=== PATIENT | female | born 1985 | race Hispanic/Latino ===

== ENCOUNTER 2019-06-29 10:38 | Emergency (ER) | payer OTHER, SELFPAY ==
[2019-06-29 10:46] VITALS: BP 121/73; PULSE 94; RESP 16; TEMP 36.8; O2SAT 100
--- NOTE | 2019-06-29 10:49 | PC.NURSE ---
in br to obtain ua spec.
--- NOTE | 2019-06-29 11:06 | ED.FEMALEGU ---
HPI - Female Genitourinary General Chief complaint: SHERIFF DEPUTY Stated complaint: Yeast Infection Time Seen by Provider: 06/29/19 11:06 Source: patient Mode of arrival: ambulatory Limitations: no limitations History of Present Illness HPI Narrative: Emily Meredith is a 33 yo female with no PMH who comes here with vaginal discharge that she states is due to taking a couple doses of antibiotics that or someone else's; she is red sore and swollen in the genital area Related Data Home Medications Medication Instructions Recorded Confirmed Zyrtec-D 06/29/19 albuterol sulfate INHALATION 06/29/19 budesonide-formoterol [Symbicort] INHALATION 06/29/19 fluticasone propionate INTRANASAL 06/29/19 Allergies Allergy/AdvReac Type Severity Reaction Status Date / Time No Known Allergies Allergy Verified 08/21/17 19:26 Review of Systems Review of Systems: Narrative: CONSTITUTIONAL: Denies fever, chills, sweats. EYES: Denies visual changes, redness, discharge. ENT: Denies rhinorrhea, congestion, sore throat, otalgia. CARDIOVASCULAR: Denies chest pain, palpitations, edema. RESPIRATORY: Denies dyspnea, wheezing, cough GASTROINTESTINAL: Denies abdominal pain, nausea, vomiting, diarrhea. GENITOURINARY: Denies dysuria, hematuria, has abnormal discharge, with swelling and redness SKIN: Denies rash or itching. NEUROLOGIC: Denies numbness, or focal weakness. PSYCHIATRIC: Denies anxiety or depression. [facility] Family History Family History Other No active medical problems Social History Social History (Updated 06/29/19 @ 11:22 by Marj Crenshaw CNP) Smoking status: Never smoker Alcohol intake: never Living arrangements: with family Comments My nurse Exam Narrative: Exam Narrative: GENERAL: This is a well-nourished, well-developed patient, in mild distress. HEAD: normocephalic, atraumatic. EYES: PERRL. Sclera clear/white. Vision is grossly intact. EARS: External ears normal, . Hearing grossly intact. NOSE: External nose normal with no obvious nasal discharge, nares without redness, no rhinorrhea. THROAT: Mucous membranes moist, posterior pharynx clear. NECK: Neck supple, non-tender without lymphadenopathy, CARDIOVASCULAR: Regular rate and rhythm without murmurs, gallops, or rubs. RESPIRATORY: Clear to auscultation. Breath sounds equal bilaterally. No wheezes, rales, or rhonchi. GASTROINTESTINAL: Abdomen soft, non-tender, SKIN: warm, intact with no suspicious lesions or rash, good texture and turgor. NEURO: awake, alert, and oriented to person, place and time. There were no obvious focal neurologic abnormalities. Steady gait EXTREMITIES: Normal range of motion. No edema. BACK: Nontender without deformity or crepitance. No flank tenderness. : vaginal vault reddened and swollen, traces of monisat in vault, no CMT, adnexal tenderness Course Course Emergency Course: Pelvic exam specimens for GC chlamydia, UA sent Given Rocephin and Zithromax here, 2 doses of Diflucan ordered Vital Signs Vital signs: Vital Signs Temperature 98.3 F 06/29/19 10:46 Pulse Rate 94 06/29/19 10:46 Respiratory Rate 16 06/29/19 10:46 Blood Pressure 121/73 06/29/19 10:46 Pulse Oximetry 100 06/29/19 10:46 Temperature 98.3 F 06/29/19 10:46 Pulse Rate 94 06/29/19 10:46 Respiratory Rate 16 06/29/19 10:46 Blood Pressure 121/73 06/29/19 10:46 Pulse Oximetry 100 06/29/19 10:46 MDM - Female Genitourinary Differential Diagnosis Differential diagnosis: Likely urinary tract infection, bacterial vaginosis and other Lab Data Labs: Urine Glucose Negative Reference Range: Negative Urine Bilirubin Negative Reference Range: Negative Urine Ketone Negative Reference Range: Negative Urine Specific [place] 1.020 Reference Range:1.001-1.035 Urine Blood
--- NOTE | 2019-06-29 11:40 | PC.NURSE ---
unable to pull medication from med. pyxis, food inspector aware and will reorder.
[2019-06-29] MEDS: AZITHROMYCIN 250 MG TABLET 1000 MG PO (12:00)
[2019-06-29] MEDS: cefTRIAXone 250 MG VIAL IM (12:01)
== END 2019-06-29 12:20 | disposition home or self-care (01) ==
PROVIDERS: Emergency Provider Nurse Practitioner
DX: N76.0 Acute vaginitis (principal); Z04.89 Encounter for examination and observation for other specified reasons; J45.909 Unspecified asthma, uncomplicated
CPT/HCPCS: 81003; 87077; 87086; 87088; 87491; 87591; 87661; 96372; 99213; A9270; G0463; J0696

== ENCOUNTER 2021-03-22 16:07 | Emergency (ER) | payer OTHER, SELFPAY ==
--- NOTE | ~2021-03-22 | XR_ITS ---
EXAMINATION: XR ankle RT min 3V DATE: 03/22/2021 17:07 INDICATION: Right ankle pain post fall. TECHNIQUE: Anteroposterior, oblique, mortise, and lateral views of the right ankle were obtained. COMPARISON: None. FINDINGS: Alignment is normal. No fracture. Joint spaces are well maintained. Small plantar calcaneal spur. S oft tissues tissue swelling about the ankle both medially and more prominently laterally. No definiti ve right ankle joint effusion. IMPRESSION: 1. No acute osseous abnormality. Reviewed, dictated and finalized at location A. [employer] CLEANING SPECIALIST
[2021-03-22 16:45] VITALS: BP 111/80; PULSE 104; RESP 16; TEMP 36.2; O2SAT 99
[2021-03-22 19:15] VITALS: BP 119/80; PULSE 90; RESP 16; TEMP 37.5; O2SAT 98
--- NOTE | 2021-03-22 21:26 | ED.GENADULT ---
HPI - General Adult General Chief complaint: Extremity Injury, Lower Stated complaint: right ankle injury Time Seen by Provider: 03/22/21 21:02 Source: patient and RN notes reviewed History of Present Illness HPI narrative: Patient is a 35 y/o female complaining of right ankle pain after she fell about 2 weeks ago. She describe her pain as aching and rates it as 7/10. She states that walking worsens her pain. However, she is able to walk. She denies any other injury due to the fall. Related Data Home Medications Medication Instructions Recorded Confirmed Zyrtec-D 06/29/19 albuterol sulfate INHALATION 06/29/19 budesonide-formoterol [Symbicort] INHALATION 06/29/19 fluticasone propionate INTRANASAL 06/29/19 Allergies Allergy/AdvReac Type Severity Reaction Status Date / Time No Known Allergies Allergy Verified 08/21/17 19:26 Review of Systems Review of Systems: All systems reviewed & are unremarkable except as noted in HPI and below Musculoskeletal: Musculoskeletal: Reports as per HPI and Reports arthralgias (right ankle pain) [facility] Family History Family History Other No active medical problems Social History Social History Smoking status: Never smoker Alcohol intake: never Exam Const: General: no acute distress and well developed Eyes: General: appearance normal, both eyes and all related structures Conjunctivae: conjunctivae normal Neck: Neck: normal visual inspection and full ROM Extrem: General: full ROM and no pedal edema Right lower extremity: ankle Details: tenderness Location: of the lateral malleolus Course Vital Signs Vital signs: Vital Signs Temperature 36.2 C L 03/22/21 16:45 Pulse Rate 104 H 03/22/21 16:45 Respiratory Rate 16 03/22/21 16:45 Blood Pressure 111/80 03/22/21 16:45 Pulse Oximetry 99 03/22/21 16:45 Temperature 37.5 C 03/22/21 19:15 Pulse Rate 87 03/22/21 21:45 Respiratory Rate 16 03/22/21 19:15 Blood Pressure 116/83 03/22/21 21:45 Pulse Oximetry 97 03/22/21 21:45 Medical Decision Making Vital Signs Vital Signs: Vital Signs Temperature 36.2 C L 03/22/21 16:45 Pulse Rate 104 H 03/22/21 16:45 Respiratory Rate 16 03/22/21 16:45 Blood Pressure 111/80 03/22/21 16:45 Pulse Oximetry 99 03/22/21 16:45 Temperature 37.5 C 03/22/21 19:15 Pulse Rate 87 03/22/21 21:45 Respiratory Rate 16 03/22/21 19:15 Blood Pressure 116/83 03/22/21 21:45 Pulse Oximetry 97 03/22/21 21:45 Discharge Plan Discharge Clinical Impression: Right ankle sprain Qualifiers: Encounter type: initial encounter Involved ligament of ankle: unspecified ligament Qualified Code(s): S93.401A - Sprain of unspecified ligament of right ankle, initial encounter Patient Disposition: Home, Self-Care Condition: Stable Instructions: Ankle Sprain (ED) Prescriptions: No Action albuterol sulfate 90 mcg/actuation HFA aerosol inhaler INHALATION RF: 0 fluticasone propionate 50 mcg/actuation spray,suspension INTRANASAL RF: 0 budesonide-formoterol [Symbicort] 160-4.5 mcg/actuation HFA aerosol inhaler INHALATION RF: 0 Zyrtec-D RF: 0 fluconazole 150 mg tablet 150 mg PO ONCE Qty: 2 RF: 0 Follow-up/Referrals: PHYSICIAN NOT ON STAFF,NONSTAFF [Primary Care Provider] -
[2021-03-22 21:45] VITALS: BP 116/83; PULSE 87; O2SAT 97
== END 2021-03-22 22:05 | disposition home or self-care (01) ==
PROVIDERS: Emergency Provider Emergency Medicine
DX: S93.401A Sprain of unspecified ligament of right ankle, initial encounter (principal); W19.XXXA Unspecified fall, initial encounter
CPT/HCPCS: 73610; 99283

== ENCOUNTER 2021-04-05 13:02 | Emergency (ER) | payer OTHER, SELFPAY ==
[2021-04-05 13:11] VITALS: BP 104/68; PULSE 96; RESP 16; TEMP 36.4; O2SAT 100
== END 2021-04-05 14:40 | disposition left against medical advice (07) ==
LOC: EXPCOLL 13:05
PROVIDERS: Emergency Provider Nurse Practitioner
DX: Z53.21 Procedure and treatment not carried out due to patient leaving prior to being seen by health care provider (principal)
CPT/HCPCS: 99199

== ENCOUNTER 2021-04-05 15:17 | Emergency (ER) | payer OTHER, SELFPAY ==
[2021-04-05 15:24] VITALS: BP 101/75; PULSE 91; RESP 18; TEMP 36.6; O2SAT 100
--- NOTE | 2021-04-05 17:31 | ED.URI ---
HPI - URI/Sore Throat General Chief Complaint: Upper Respiratory Infection Stated Complaint: Sore throat,Cough Time Seen by Provider: 04/05/21 17:22 Source: patient and RN notes reviewed Mode of arrival: ambulatory Limitations: no limitations History of Present Illness HPI Narrative: Patient presents today with a 3-day history of sore throat, cough, headache, left ear clogging. Denies fever or shortness of breath. She took NyQuil last night with some mild relief. She did a rapid COVID-19 test today that was negative MD elicited complaint: cough and sore throat Related Data Allergies Allergy/AdvReac Type Severity Reaction Status Date / Time No Known Allergies Allergy Verified 04/05/21 14:22 Review of Systems Review of Systems: CONSTITUTIONAL: Denies body aches, fever, chills, or sweats. EYES: Denies visual changes, redness, or discharge. ENT: Denies rhinorrhea, congestion. + Sore throat, left ear clogging CARDIOVASCULAR: Denies chest pain, palpitations, or edema. RESPIRATORY: Denies dyspnea.+ GASTROINTESTINAL: Denies abdominal pain, nausea, vomiting, or diarrhea. GENITOURINARY: Denies dysuria or hematuria. SKIN: Denies rash, itching, or wounds. MUSCULOSKELETAL: Denies back pain, joint pain, or myalgia. NEUROLOGIC: Denies numbness, tingling, or weakness.+ Headache PSYCH: Denies depression or anxiety. [facility] Family History Family History Other No active medical problems Social History Social History Smoking status: Never smoker Alcohol intake: never Comments At time of signature, I have reviewed and agree with nursing past medical, surgical, social and family history unless otherwise noted. Please see nursing chart for further information. There is no relevant family history pertinent to the presenting complaint Exam Narrative: GENERAL: Well-appearing, well-nourished, and in no acute distress. HEAD: Normocephalic, atraumatic. EYES: EOMI. No redness or drainage. Conjunctivae normal. ENT: Mucous membranes pink and moist. Nares clear. No rhinorrhea. TMs normal bilaterally. Throat mildly erythematous. Tonsils absent. Uvula midline. NECK: Normal AROM. Supple. No lymphadenopathy. CHEST: No respiratory distress. Clear to auscultation. HEART: Regular rate and rhythm. No murmur appreciated. Normal peripheral pulses. EXTREMITIES: Normal range of motion. No edema. SKIN: Warm, dry, no rash. Capillary refill normal. Normal skin turgor. NEURO: No focal deficits. Alert and oriented x3. Gait steady. PSYCH: Normal affect. No signs of depression or anxiety. Course Vital Signs Vital signs: Vital Signs Temperature 97.8 F 04/05/21 15:24 Pulse Rate 91 04/05/21 15:24 Respiratory Rate 18 04/05/21 15:24 Blood Pressure 101/75 04/05/21 15:24 Pulse Oximetry 100 04/05/21 15:24 Temperature 97.8 F 04/05/21 15:24 Pulse Rate 91 04/05/21 15:24 Respiratory Rate 18 04/05/21 15:24 Blood Pressure 101/75 04/05/21 15:24 Pulse Oximetry 100 04/05/21 15:24 Reviewed MDM - URI/Sore Throat Differential Diagnosis Differential diagnosis: Likely upper respiratory infection, otitis media, viral infection, pharyngitis and other (Strep throat) Lab Data Attestation: I reviewed the patient's lab results. Labs: Strep Screen Presumptive Negative *(Reference Range: Negative)* Critical Care Time Critical Care Time Critical Care Time: No Discharge Plan Discharge Clinical Impression: Upper respiratory infection Qualifiers: URI type: unspecified URI Qualified Code(s): J06.9 - Acute upper respiratory infection, unspecified Patient Disposition: Home, Self-Care Condition: Stable Instructions: Upper Respiratory Infection (DC) Additional Instructions: Your rapid strep swab was negative today at [facility]. You will
== END 2021-04-05 18:05 | disposition home or self-care (01) ==
PROVIDERS: Emergency Provider Nurse Practitioner
DX: J06.9 Acute upper respiratory infection, unspecified (principal); J45.909 Unspecified asthma, uncomplicated
CPT/HCPCS: 87081; 87880; 99213; G0463

== ENCOUNTER 2022-07-14 18:55 | Emergency (ER) | payer OTHER, SELFPAY ==
--- NOTE | 2022-07-14 18:56 | ED.SKABFB ---
HPI - Skin/Abscess/Foreign Bdy General Chief complaint: Skin/Abscess/Foreign Body Stated complaint: Rash On Body Time Seen by Provider: 07/14/22 18:56 Source: patient Mode of arrival: ambulatory Limitations: no limitations History of Present Illness HPI narrative: Emily is a 36-year-old female patient presenting to the clinic today with complaints of a rash all over her body. She reports she has had this rash for approximately 3 weeks. States she changed her laundry detergent and developed a rash however she has switch back but is still having the rash. Related Data Allergies Allergy/AdvReac Type Severity Reaction Status Date / Time No Known Allergies Allergy Verified 04/05/21 14:22 Review of Systems Review of Systems: Pertinent positives per HPI. Patient denies any fever, chills, headache, visual changes, dizziness, cough, runny nose, sore throat, shortness of breath, chest pain, palpitations, nausea, vomiting, diarrhea, constipation, abdominal pain, or any urinary issues. [facility] Family History Family History Other No active medical problems Social History Social History Smoking status: Never smoker Alcohol intake: never Living arrangements: with family Comments At the time of my signature, I reviewed and agree with the nursing past medical, surgical, social, and family history. There is no relevant family history pertinent to the patient complaint. Exam Narrative: General: Well-developed, well nourished, in no apparent distress Head: Normocephalic, atraumatic. Cardio: Regular rate and rhythm, s1 and s2 normal, no murmur appreciated. Resp: Clear to auscultation bilaterally, no rhonchi, rales, wheezing or rubs. Integumentary: [place], warm, and dry, intact without lesion, scattered red prickly itchy rash to the bilateral arm, chest wall, legs, and neck. Course Course Emergency Course: Portions of this record may have been created with voice recognition software. Level of Care: Express Care Visit Vital Signs Vital signs: Vital Signs Temperature 36.6 C 07/14/22 19:03 Pulse Rate 99 07/14/22 19:03 Respiratory Rate 12 07/14/22 19:03 Blood Pressure 138/86 07/14/22 19:03 Pulse Oximetry 100 07/14/22 19:03 Oxygen Delivery Room Air 07/14/22 19:03 Temperature 36.6 C 07/14/22 19:03 Pulse Rate 99 07/14/22 19:03 Respiratory Rate 12 07/14/22 19:03 Blood Pressure 138/86 07/14/22 19:03 Pulse Oximetry 100 07/14/22 19:03 Oxygen Delivery Room Air 07/14/22 19:03 Vital signs reviewed MDM - Skin/Abscess/Foreign Bdy MDM Narrative Medical decision making narrative: At the time of visit patient is resting comfortably on the exam table. I suspect patient has dermatitis. Will send in prescription for prednisone and topical triamcinolone cream. Supportive measures were discussed with the patient she voiced understanding discharge instructions and agrees to treatment plan. Differential Diagnosis Differential diagnosis: Likely viral exanthem, urticaria, eczema and contact dermatitis Discharge Plan Discharge Clinical Impression: Dermatitis Patient Disposition: Home, Self-Care Condition: Stable Instructions: Antibiotic Form, Dermatitis (ED) Additional Instructions: Apply triamcinolone cream as directed Take prednisone as directed Avoid hot showers Avoid scratching and this causes rash to spread Moist dry skin twice daily with non scented lotions such as Lubriderm, Aquaphor, or Cetaphil May take benadryl 25-50mg every 6 hours as needed for itching. Follow up with your PCP in 3-5 days if symptoms persist or sooner if they worsen Go to the Emergency Room if symptoms worsen- fever, rash spreading with treatment, shortness of breath, tongue swelling, drooling, or chest pain Prescriptions: New triamcinolone acetonide 0.1 % cream
[2022-07-14 19:03] VITALS: BP 138/86; PULSE 99; RESP 12; TEMP 36.6; O2SAT 100
== END 2022-07-14 19:11 | disposition home or self-care (01) ==
PROVIDERS: Emergency Provider Nurse Practitioner Family
DX: L30.9 Dermatitis, unspecified (principal); J45.909 Unspecified asthma, uncomplicated
CPT/HCPCS: 99213; G0463

== ENCOUNTER 2023-01-10 15:11 | Outpatient (CLI) | payer OTHER, SELFPAY ==
--- NOTE | 2023-01-10 15:27 | ECG_ITS ---
Measurements Intervals [place] Rate: 76 P: 60 NM: 135 QRS: 63 QRSD: 85 T: 37 QT: 370 QTc: 418 Interpretive Statements SINUS RHYTHM WITH SINUS ARRHYTHMIA BASELINE ARTIFACT- II, III, AVR, AVL, AVF, V5 NORMAL ECG NO PREVIOUS ECG AVAILABLE FOR COMPARISON Electronically Signed On 01-10-2023 15:57:39 CDT by Andrew Burnett D.O.
[2023-01-10 15:47] LABS: Hematocrit 42.7 % (37.0-47.0)
== END 2023-01-10 15:12 | disposition home or self-care (01) ==
PROVIDERS: Anesthesiology; Visit Provider Surgery Plastic and Reconstructive Surgery
DX: Z41.1 Encounter for cosmetic surgery (principal)
CPT/HCPCS: 36415; 85014; 85018; 93005

== ENCOUNTER 2023-01-13 03:35 | Day surgery (SDC) | payer OTHER, SELFPAY ==
[2023-01-03 15:25] VITALS: BMI 28.8
--- NOTE | 2023-01-03 15:32 | PC.NURSE ---
Report to the Outpatient Waiting Room, entrance under the green pavilion located off [facility], at time _0900_ on date _[id number]_. Planned Procedure Time: _1100_. Time changes happen often and if your time is changed the preop area will call you the afternoon before. - You and your visitor will be asked to self-screen and do not enter if you have any COVID symptoms. - A mask is optional within the hospital at this time. Patients may have clear liquids (water, carbonated beverages, clear teas, apple juice) until 3 hours prior to surgery with a maximum of 20 ounces. - No food from midnight until time of surgery Take the following medications with a SIP of water the morning of surgery: None DO NOT STOP ANY OF YOUR OTHER PRESCRIPTION MEDICATIONS PRIOR TO SURGERY ?EXCEPT THE FOLLOWING Medications to discontinue per physician __Multivitamin Date to take last uqru___[id number] Please no make-up, nail y[place], hairspray, perfume, deodorant, or body powder the day of surgery. No jewelry (including any body piercings) or valuables the day of surgery, leave them at home. Please take a shower or bath the night before, or the morning of, surgery with an antibacterial soap. Wear comfortable, loose fitting clothing. - Jewelry must be removed prior to entering the operating room. Rings and piercings that are not removed may be cut off. - The hospital will not accept responsibility for valuables. - Please leave all valuables, including medications, at home the day of surgery. If you are going home after surgery, a licensed [place] driver must drive you home. - NO public transportation without another adult if you receive anesthesia. - We recommend that an adult stay with you for 24 hours following discharge. - We also recommend that you do not drive, make important decision, drink alcoholic beverages, or take any drugs that were not prescribed by your health care provider for at least 24 hours after your discharge time. Follow any additional instructions given to you from your surgeon. If you or anyone in your household have experienced Covid symptoms in the past week, please notify your surgeon or the nurse liaison at the phone number below for possible testing. Telephone instructions given to __Patient__and asked if any additional questions and then verbalized understanding. Patient advised to call surgeon office or pre surgery nurse liaison [phone] if any additional questions.
[2023-01-13] VITALS (9 sets, daily range): BP systolic 90–112; BP diastolic 58–75; PULSE 85–112; RESP 13–20; TEMP 36.2–37.1; O2SAT 95–100
--- NOTE | 2023-01-13 07:49 | W.PM.PROC2 ---
Procedure Note - Detailed Date of Procedure 01/13/23 Pre-op Diagnosis skin laxity Post-op Diagnosis Same Procedure Performed [id number] abdominoplasty with suction lipectomy Surgeon Alcon Del Toro MD Anesthesia General Findings Lipoaspirate: 750 cc Tissue removed: 2,061 grams Description of Procedure They are here today for the above procedures. Previously and again today the risks, benefits, alternatives were discussed in extensive detail. I wanted them to be very realistic about the risks involved as well as expectations. We discussed aftercare and what to monitor for. I was very upfront about the risks of wound breakdown leading to loss of skin, open wounds, and need for additional procedures with permanent abdominal deformity. We discussed DVT/PE risks and management. Made sure answered all of their questions to their satisfaction today and consent was obtained. They were marked in the preoperative holding area with their verification. The patient was taken to the operating room. Anesthesia was provided by anesthesiology. A Aranda catheter was started. Placed prone on the operating room table with care taken to protect from injury. Prepped and draped in a standard sterile fashion. A surgical time-out was taken. Stab incisions were made and tumescent solution was infiltrated. Once adequate time was allowed for hemostasis a 5mm basket and 3mm multi hole cannula were utilized to complete suction lipectomy based on S.A.F.E. technique in multiple planes and passes. Suction lipectomy continued to result based on pre-operative planning, intra-operative observation, and rolling pinch test which were in full agreement. Patient was then placed supine with care taken to protect from injury. I placed the patient in a flexed position to verify the upper and lower markings would reach. I then placed supine. A thorough abdominal examination was completed. Stab incisions were made and tumescent solution was infiltrated. Once adequate time was allowed for hemostasis a 5mm basket and 3mm multi hole cannula were utilized to complete suction lipectomy based on S.A.F.E. technique in multiple planes and passes. Suction lipectomy continued to result based on pre-operative planning, intra-operative observation, and rolling pinch test which were in full agreement. A 10 blade was used to make the upper incision as well as the vertical planned resection of the [id number]. I continued dissection down to the level of fascia. Elevated just what was necessary for repair of the diastasis with essentially no undermining. I then again flexed the bed to verify the upper skin flap would reach the lower markings without tension. Once verified I placed her supine once again and a 10 blade used to make the lower incision. I elevated up to level the umbilicus and left the umbilicus intact on a well-vascularized stalk. The intervening tissue was removed. A 2 mm blunt cannula with 0.5% bupivicaine was injected deep to the fascia bilaterally. I plicated the diastasis recti using 0 PDO stratafix barbed suture. This was in 2 separate layers using 2 separate sutures as well. I repaired around the umbilicus leaving plenty of room for well-vascularized stalk of the umbilicus with 2-0 PDS. I also repaired lateral to the rectus using two layers of 0 PDO stratafix. The patient was flexed and starting from superior to inferior began plication using 2-0 Vicryl to obliterate all space in a standard progressive tension fashion. At the umbilicus I marked out the location of the skin and inset this with 3-0 Monocryl and 4-0 Vicryl. I continued the remainder of the plication using 2-0 Vicryl until I reached my lower planned scar line. I trimmed any excess skin of the upper flap making sure this was a tension-free closure. The vertical incision was closed with 3-0 strattafix and 4-0 monocryl followed by tissue glue. Inferiorly I placed a 15 Zohaib drain.
--- NOTE | 2023-01-13 09:12 | WPDHPUPDATE1 ---
History and Physical Update Update Date/Time: 01/13/23 09:12 History and Physical has been reviewed, including an updated exam of the patient. There are NO changes in the patient's condition. Risks, benefits, and alternatives have been discussed and questions answered. Patient agrees to proceed with procedure.
[2023-01-13] MEDS: LACTATED RINGERS 1,000 ML 30 ML IV CONT ×2 (09:15→14:04)
[2023-01-13 09:21] LABS: Urine Cotinine NEGATIVE
--- NOTE | 2023-01-13 09:42 | WPDANESEPPF ---
Anes - Initial Pre Proc Eval Procedure: Operation Date: 01/13/23 11:00 Proposed Procedures p Dona Vincent Abdominoplasty with Liposuction - Alcon Del Toro MD Date/Time: 01/13/23 09:42 Surgeon: Alcon Del Toro MD Pre Op Diagnosis: skin laxity Patient Data Age: 37 Gender: F Height: 1.45 m Weight: 59.5 kg Last Vital Signs Temp 36.8 C 01/13/23 09:09 Pulse 85 01/13/23 09:09 Resp 18 01/13/23 09:09 BP 90/65 L 01/13/23 09:09 Pulse Ox 100 01/13/23 09:09 O2 Del Method Room Air 01/13/23 09:09 Allergies Allergy/AdvReac Type Severity Reaction Status Date / Time No Known Allergies Allergy Verified 01/03/23 15:23 Home Medications Medication Instructions Recorded Confirmed Type cetirizine 5 mg-pseudoephedrine ER 1 tablet PO HS 01/03/23 01/03/23 History 120 mg tablet,extended release,12hr (Zyrtec-D) multivitamin 1 tablet PO DAILY 01/03/23 01/03/23 History Laboratory Tests 01/13/23 09:00 Cotinine Negative Patient hx anesthesia problems: none Family hx anesthesia problems: none Results Review: All pre-operative results and documents have been reviewed as part of the pre-operative evaluation. [facility] Past Medical History Medical History Asthma Family History Family History Other No active medical problems Social History Social History Smoking status: Never smoker Alcohol intake: never Living arrangements: with family Spiritual care concerns: No Anes - Eval Final PreProcedure Day of Procedure 01/13/23 09:42 Patient weight: overweight Heart: regular rate and rhythm Airway: Mallampati scale class II Neurological: alert and oriented Last oral intake: >/= 8 hours ASA classification: II Emergent: no Anesthetic plan: proceed Anesthesia type and monitoring: general ETT and standard monitoring Results Review: All pre-operative results and documents have been reviewed as part of the pre-operative evaluation. Informed Consent: The patient's anesthetic plan and its attendant risks and benefits were discussed with the patient/family/POA. Questions were solicited and answers provided to the satisfaction of the patient/family/POA.
[2023-01-13] MEDS: SCOPOLAMINE 1.5 MG PATCH TRANSDERM (09:46)
[2023-01-13] MEDS: TRANEXAMIC ACID 1,000MG/ISO100 1,000 MG/100 ML BAG 200 MG IVPB (09:57)
[2023-01-13] MEDS: ceFAZolin 2 GM/D5W 50 ML 2 GM/50 ML BAG IVPB (09:57)
[2023-01-13] MEDS: BUPIVACAINE/EPINEPHRINE 0.5% 50 ML VIAL 60 ML INFILTRATE (09:57)
[2023-01-13] MEDS: LACTATED RINGERS IRRIG 1,000 ML, LIDOCAINE HCL 1% LOCAL INJ 50 ML, EPINEPHrine HCL INJ ... INFILTRATE (09:57)
[2023-01-13] MEDS: ONDANSETRON INJ 4 MG/2 ML VIAL IV PUSH ×2 (14:18→19:48)
[2023-01-13] MEDS: diphenhydrAMINE HCl INJ 50 MG/ML VIAL 25 MG IV PUSH (14:28)
[2023-01-13] MEDS: HYDROmorphone HCL INJ (*CRX) 1 MG/ML SYR 0.5 MG IV PUSH (14:39)
[2023-01-13] MEDS: LACTATED RINGERS 1,000 ML 125 ML IV CONT ×2 (15:48→23:50)
--- NOTE | 2023-01-13 17:25 | PC.NURSE ---
This patient, Emily Meredith, was received from PACU on 01/13/23 at 1520. Patient/family oriented to unit policies and routines
[2023-01-13] MEDS: carisoprodoL (*CRX) 350 MG TABLET PO ×2 (17:41→23:27)
[2023-01-13] MEDS: KETOROLAC 10 MG TABLET PO ×2 (17:41→23:31)
[2023-01-13] MEDS: ENOXAPARIN 40 MG/0.4 ML SYRINGE SUB-Q (19:46)
[2023-01-14 05:25] VITALS: BP 86/55; PULSE 104; RESP 18; TEMP 37.6; O2SAT 100
[2023-01-14] MEDS: carisoprodoL (*CRX) 350 MG TABLET PO (05:27)
[2023-01-14] MEDS: KETOROLAC 10 MG TABLET PO (05:27)
--- NOTE | 2023-01-14 07:46 | WPDPN ---
Progress Note: A&P Assessment and Plan (1) Skin laxity: Code(s): L57.4 - Cutis laxa senilis Status: Acute Assessment and Plan: Doing well after [id number] abdominoplasty with suction lipectomy . Will discharge home. Today we had a lengthy discussion about the care. Activity limitations. What to monitor for. What is an emergency and when to dial 911 / proceed to the ER. This was a lengthy open ended conversation making sure they were well informed. Answered all their questions. They voiced a clear understanding. Will discharge home. Call with any questions or concerns in the meantime. (2) Localized adiposity: Code(s): E65 - Localized adiposity Status: Acute Subjective Date/time seen: 01/14/23 07:46 Interval history: Doing well after progressive tension abdominoplasty with suction lipectomy. Ambulating. Pain controlled. No nausea / vomiting. No fevers / chills. No shortness of breast. No chest pain. No calf tenderness. Review of Systems Review of Systems: All systems reviewed & are unremarkable except as noted in HPI and below Exam Narrative: Alert & Oriented NOD Respiratory unlabored Abdomen is healing well. No signs of infection. No hematoma. No seroma. Good color and capillary refill. No calf tenderness. Negative Leisa's Objective Data Vital Signs Vital Signs: Vital Signs - 24 hr 01/13/23 09:09 01/13/23 14:04 01/13/23 14:20 Temperature 36.8 C 36.2 C L Pulse Rate 85 112 H 105 H Respiratory Rate 18 13 16 Blood Pressure 90/65 L 105/65 106/69 Pulse Oximetry 100 95 98 Oxygen Delivery Room Air Room Air Room Air 01/13/23 14:35 01/13/23 14:50 01/13/23 15:05 Temperature Pulse Rate 100 95 103 H Respiratory Rate 20 20 18 Blood Pressure 107/70 107/75 112/73 Pulse Oximetry 99 100 100 Oxygen Delivery Room Air Room Air Room Air 01/13/23 15:25 01/13/23 19:30 01/13/23 23:30 Temperature 36.3 C L 36.9 C Pulse Rate 92 96 100 Respiratory Rate 16 16 18 Blood Pressure 100/62 107/73 Pulse Oximetry 100 99 99 Oxygen Delivery Room Air 01/13/23 23:30 01/14/23 05:25 01/14/23 05:25 Temperature 37.1 C 37.6 C H Pulse Rate 100 104 H 104 H Respiratory Rate 18 18 18 Blood Pressure 90/58 L 86/55 L Pulse Oximetry 99 100 100 Oxygen Delivery Room Air Intake/Output Intake/Output: Intake & Output 01/11/23 01/12/23 01/13/23 01/14/23 23:59 23:59 23:59 23:59 Intake Total 2540 Output Total 965 400 Balance 1575 -400 Meds/Results Medications: Active Medications Generic Name Dose Route Start Last Admin Trade Name Freq PRN Reason Stop Dose Admin Carisoprodol 350 mg 01/13/23 18:00 01/14/23 05:27 Carisoprodol (*Crx) 350 Mg Tablet PO 350 mg Q6HR TIERA Administration Diazepam 5 mg 01/13/23 13:37 Diazepam (*Crx) 5 Mg Tablet PO TID PRN Anxiety Docusate Sodium 100 mg 01/13/23 21:00 01/14/23 06:57 Docusate Sodium 100 Mg Capsule PO Not Given Q12HR TIERA Enoxaparin Sodium 40 mg 01/13/23 20:00 01/13/23 19:46 Enoxaparin 40 Mg/0.4 Ml Syringe SUB-Q 40 mg DAILY TIERA Administration Lactated Ringer's 1,000 mls @ 125 mls/hr 01/13/23 13:40 01/14/23 06:58 Lr - Lactated Ringers Iv IV CONT Not Given .Q8H TIERA Ketorolac Tromethamine 10 mg 01/13/23 18:00 01/14/23 05:27 Ketorolac 10 Mg Tablet PO 01/15/23 12:01 10 mg Q6HR TIERA Administration Loratadine/Pseudoephedrine Sulfate 1 tab 01/13/23 21:00 01/14/23 06:58 Loratadine/Pseudoephedrine (*Crx) 10/240 Mg Tablet Er 24 Hr PO 02/12/23 20:59 Not Given HS TIERA Morphine Sulfate 2 mg 01/13/23 13:37 Morphine Sulfate (*Crx) 2 Mg/Ml Inj IV PUSH Q2H PRN Pain Ondansetron HCl 4 mg 01/13/23 13:37 01/13/23 19:48 Ondansetron Inj 4 Mg/2 Ml Vial IV PUSH 4 mg Q6H PRN Administration Nausea Oxycodone/Acetaminophen 1 tablet 01/13/23 13:37 Oxycodone/Acetaminophen (*Crx) 5-325 Mg Tablet PO Q6H PRN Pain
--- NOTE | 2023-01-14 07:48 | P.DS_ITS ---
DS: Admitting Diagnosis Discharge Date 01/14/2023 Admitting Diagnosis 1. Skin laxity 2. Localized adiposity DS: Discharge Diagnosis Discharge Diagnosis (1) Skin laxity: Code(s): L57.4 - Cutis laxa senilis Status: Acute (2) Localized adiposity: Code(s): E65 - Localized adiposity Status: Acute DS: Summary Hospital Course Hospital Course: Doing well after [id number] abdominoplasty with suction lipectomy. Will discharge home. Time Spent with Patient Time attestation: Total time spent providing and/or coordinating discharge services: Exam Narrative: Alert & Oriented NOD Respiratory unlabored Abdomen is healing well. No signs of infection. No hematoma. No seroma. Good color and capillary refill. No calf tenderness. Negative Leisa's DS: Data Data Completed and Pending Labs on day of discharge: Labs from last 24 hours 01/13/23 09:00 Cotinine Negative Discharge Plan Discharge Patient Disposition: Home, Self-Care Discharge Instructions: POST OPERATIVE DISCHARGE INSTRUCTIONS ALCON DEL TORO M.D. [facility] PLASTIC SURGERY [facility] [place] [address] * No driving for 24 hours after anesthesia and while you are taking pain medication. * Take all prescribed medication as directed * Diet as tolerated. * No lifting or activity that raises blood pressure for 48 hours. * Regular walking / ambulation. * May shower 24 hours after surgery. Once you shower do not take pain medication before showering as the combination of medication and heat may cause you to feel dizzy or pass out. * No pools or tubs for 2 weeks. * Slowly stand up straight as tolerated. * No straining or lifting more than 20 pounds. * If no bowel movement within 24 hours may use laxative. * Call with any questions or concerns. * Dressing Care: Continue abdominal binder / foam 23 hours per day. * Remove the Scopolamine patch that was placed behind your ear in 72 hours or less. Wash your hands after touching. If you have any questions or concerns, please call the office . If it is after hours you will be directed to the mission worker exchange. Shortness of breath, chest pain, or other medical emergency dial 911 / proceed to the Emergency Room. Stand Alone Forms: General Discharge Instructions Follow-up/Referrals: Alcon Del Toro MD [Physician] - Discharge Medications: Continued multivitamin Tablet 1 tablet PO DAILY cetirizine-pseudoephedrine [Zyrtec-D] 5-120 mg Tablet Extended Release 12 Hr 1 tablet PO HS
--- NOTE | 2023-01-14 07:48 | PM.DS ---
DS: Admitting Diagnosis Discharge Date 01/14/2023 Admitting Diagnosis 1. Skin laxity 2. Localized adiposity DS: Discharge Diagnosis Discharge Diagnosis (1) Skin laxity: Code(s): L57.4 - Cutis laxa senilis Status: Acute (2) Localized adiposity: Code(s): E65 - Localized adiposity Status: Acute DS: Summary Hospital Course Hospital Course: Doing well after [id number] abdominoplasty with suction lipectomy. Will discharge home. Time Spent with Patient Time attestation: Total time spent providing and/or coordinating discharge services: Exam Narrative: Alert & Oriented NOD Respiratory unlabored Abdomen is healing well. No signs of infection. No hematoma. No seroma. Good color and capillary refill. No calf tenderness. Negative Leisa's DS: Data Data Completed and Pending Labs on day of discharge: Labs from last 24 hours 01/13/23 09:00 Cotinine Negative Discharge Plan Discharge Patient Disposition: Home, Self-Care Discharge Instructions: POST OPERATIVE DISCHARGE INSTRUCTIONS ALCON DEL TORO M.D. [facility] P[facility] SURGERY [facility] [place] [address] No driving for 24 hours after anesthesia and while you are taking pain medication. Take all prescribed medication as directed Diet as tolerated. No lifting or activity that raises blood pressure for 48 hours. Regular walking / ambulation. May shower 24 hours after surgery. Once you shower do not take pain medication before showering as the combination of medication and heat may cause you to feel dizzy or pass out. No pools or tubs for 2 weeks. Slowly stand up straight as tolerated. No straining or lifting more than 20 pounds. If no bowel movement within 24 hours may use laxative. Call with any questions or concerns. Dressing Care: Continue abdominal binder / foam 23 hours per day. Remove the Scopolamine patch that was placed behind your ear in 72 hours or less. Wash your hands after touching. If you have any questions or concerns, please call the office . If it is after hours you will be directed to the production assembly operator exchange. Shortness of breath, chest pain, or other medical emergency dial 911 / proceed to the Emergency Room. Stand Alone Forms: General Discharge Instructions Follow-up/Referrals: Alcon Del Toro MD [Physician] - Discharge Medications: Continued multivitamin Tablet 1 tablet PO DAILY cetirizine-pseudoephedrine [Zyrtec-D] 5-120 mg Tablet Extended Release 12 Hr 1 tablet PO HS
--- NOTE | 2023-01-14 07:52 | WPDANESPN ---
Anes - Prog Note Post-Op Date/Time: 01/14/23 07:52 Cardiovascular status: normal Respiratory status: normal Airway patency: baseline Mental status: baseline Post-Op hydration status: normal Vital Signs: Last Vital Signs Temp 37.6 C H 01/14/23 05:25 Pulse 104 H 01/14/23 05:25 Resp 18 01/14/23 05:25 BP 86/55 L 01/14/23 05:25 Pulse Ox 100 01/14/23 05:25 O2 Del Method Room Air 01/14/23 05:25 Pain Score (VAS): 1 I/O: Intake & Output 01/13/23 01/13/23 01/14/23 15:59 23:59 07:59 Intake Total 1000 1540 Output Total 90 875 400 Balance 910 665 -400 01/13/23 09:00 Cotinine Negative Post-procedural complaints: none Patient Feedback: Patient satisfied with anesthetic care.
[2023-01-14 08:40] VITALS: BP 89/56; PULSE 102; RESP 16; TEMP 36.9; O2SAT 100
[2023-01-14] MEDS: DOCUSATE SODIUM 100 MG CAPSULE PO (09:12)
[2023-01-14] MEDS: LACTATED RINGERS 1,000 ML 500 ML IV CONT (09:13)
[2023-01-14 09:55] VITALS: BP 88/55; PULSE 89
[2023-01-14] MEDS: oxyCODONE/ACETAMINOPHEN (*CRX) 5-325 MG TABLET 1 TABLET PO (09:56)
== END 2023-01-14 13:15 | disposition home or self-care (01) ==
LOC: ANHSURGERY 09:47 → ANHOB2 15:20
PROVIDERS: Visit Provider Surgery Plastic and Reconstructive Surgery
PROC: (CPT 15877; principal; 2023-01-13 11:00)
DX: Z41.1 Encounter for cosmetic surgery (principal); L57.4 Cutis laxa senilis; E65 Localized adiposity
CPT/HCPCS: 15877; 15830; 15847; 80307; 99199; A9270; J0171; J0690; J1100; J1170; J1200; J1650; J2250; J2405; J2704; J3010; J7120